=== PATIENT | female | born 1955 | race Caucasian/White ===

== ENCOUNTER 2019-02-04 07:21 | Day surgery (SDC) | payer OTHER ==
[2019-02-04 08:06] VITALS: BMI 23.4
[2019-02-04] MEDS ORDERED: PROPOFOL 20 ML ONE (09:24)
[2019-02-04] MEDS ORDERED: LIDOCAINE 1%/EPI 1:100000 (20 ML MULTI DOSE VIAL) ONE (09:28)
[2019-02-04] MEDS ORDERED: ONDANSETRON 4 MG/2 ML VIAL ONE (09:51)
[2019-02-04] MEDS ORDERED: ceFAZolin SODIUM 1 GM VIAL ONE (09:51)
[2019-02-04] MEDS ORDERED: DEXAMETHASONE SOD PHOSPHATE 4 MG/1 ML VIAL ONE (09:51)
[2019-02-04] MEDS ORDERED: ePHEDrine SULFATE 50 MG/1 ML AMPULE ONE (10:06)
[2019-02-04] MEDS ORDERED: ROCURONIUM BROMIDE 50 MG/5 ML SYRINGE ONE (10:25)
[2019-02-04] MEDS ORDERED: oxyCODONE HCL 5 MG TABLET PO PRN ×3 (12:39)
[2019-02-04] MEDS ORDERED: ACETAMINOPHEN 325 MG TABLET (FP) PO PRN (12:39)
[2019-02-04] MEDS ORDERED: ONDANSETRON 4 MG/2 ML VIAL IVPUSH PRN (12:39)
[2019-02-04] MEDS ORDERED: ONDANSETRON 4 MG/2 ML VIAL IVPB PRN (12:39)
--- NOTE | 2019-02-04 12:41 | OP ---
Operative Note - Note: Operative Date: 02/04/19 Pre-Operative Diagnosis: left breast cancer Operation: right breast reduction and left nipple reconstruction Post-Operative Diagnosis: Same as Pre-op Surgeon: Gigi Nieves Anesthesia: General Operative Report Dictated: Yes
[2019-02-04] MEDS ORDERED: LACTATED RINGERS SOLUTION 1,000 ML IV SCH ×2 (12:45)
--- NOTE | 2019-02-04 14:05 | OP ---
DATE OF OPERATION: 02/04/2019 PROCEDURE: Right-sided breast reduction, left-sided nipple-areolar reconstruction using skate flap. ATTENDING SURGEON: Gigi Joseph MD ASSISTANTS: None. ANESTHESIA: General endotracheal anesthesia. Patient also received 5 mL of 1% lidocaine with 1:100,000 epinephrine to the left nipple reconstruction site. The patient was marked in the holding area. The nipples were sited at 21 cm from the sternal notch bilaterally. The patient is awake and aware of all incisions and resulting scars. Risks, benefits, and alternatives are discussed, understood and agreed to proceed. The patient was brought to the operating room. One gram of Ancef was given preoperatively. Sequential compression stockings and GEORGES hose were applied. The patient is then placed in supine position, is comfortable, position is carefully checked by surgical and anesthesia teams. A pillow was placed below the knees and a lower body Anisha Hugger is applied. Patient is then given anesthesia. She is prepped and draped in standard surgical fashion. A timeout is called. Patient, procedure, side and sites are verified. On the right side, a 38-mm nipple-areolar cookie cutter is used. A 9-cm width inferior pedicle is marked under tension. The nipple areola is traced and the pedicle is de-epithelialized with the exception of the nipple-areolar complex. The skin flaps are then elevated with centimeter and a half thickness, both superiorly, medially, and laterally, down to the level of the chest wall. The excess breast tissue is then resected between the skin flaps and the pedicle. Total resected weight is 248 g. Hemostasis is meticulously achieved. The skin is then tailor tacked in position. Patient brought to a seated upright position, where symmetry of size and shape is deemed to be good. The wound is copiously irrigated. A size 10 flat DILEEP drain is brought out through the lateral extent of the incision, secured with a 2-0 silk drain suture. The inverted T point is closed with a half-buried mattress 2-0 nylon suture. The pedicle was pexied to the superomedial chest wall with a 2-0 Vicryl suture. Closure is then performed with a series of interrupted buried deep dermal 3-0 Monocryl suture followed by a running subcuticular 3-0 Monocryl suture in all the vertical and horizontal as well as nipple-areolar keyhole insets. The nipple was pink and viable at the end of the procedure. Attention is then directed toward the contralateral side. A skate flap is elevated with a superior pedicle. The skate flap is folded upon itself and inset with a series of interrupted 5-0 nylon suture. The donor sites are closed with a series of interrupted buried deep dermal 3-0 Monocryl suture followed by a running 5-0 nylon suture. The inset is completed with a 5-0 nylon suture. All the tissues appear pink and viable. Dressings were applied with Steri-Strips, 4 x 4 gauze, Hypafix tape to both sides. A loosely-fitting surgical bra is applied. Patient awoken from anesthesia, having tolerated the procedure well. Drain placed to bulb suction. GIGI JOSEPH M.D. [id number]
[2019-02-04 14:57] VITALS: PULSE 91
[2019-02-04 15:19] VITALS: BP 132/65; TEMP 97.9
--- NOTE | 2019-02-11 13:36 | PATH ---
Surgical Pathology Report Patient Name: AL PERDOMO [facility]. Rec. #: [id number] /Age/Gender: 1955 (Age: 63) / F Account: [id number] Location[facility] Taken: 02/04/2019 Received: 02/04/2019 Reported: 02/11/2019 Physicians: Gigi Nieves Specimen(s) Received RIGHT BREAST TISSUE Clinical History Breast cancer, right breast reduction Final Diagnosis BREAST TISSUE, RIGHT, REDUCTION: BENIGN PREDOMINANTLY FATTY BREAST TISSUE. SKIN WITH NO PATHOLOGIC FINDINGS. Electronically Signed Cecile Issa M.D. Gross Description Received in formalin, labeled "right breast tissue" is a 14.5 x 14 x 4 cm aggregate of unoriented portions of fibroadipose tissue, partially surfaced by light richey, unremarkable skin. Sectioning reveals predominantly adipose tissue. Hospital Nurse sections are submitted in two cassettes.
== END 2019-02-04 15:19 | disposition home or self-care (01) ==
LOC: FASU 07:21
PROVIDERS: ATTEND Plastic Surgery
PROC: 0HX5XZZ Transfer Chest Skin, External Approach (ICD-10-PCS; principal; 2019-02-04 10:07)
PROC: 0HBT0ZZ Excision of Right Breast, Open Approach (ICD-10-PCS; 2019-02-04 10:07)
DX: C50.912 Malignant neoplasm of unspecified site of left female breast (principal)
CPT/HCPCS: 88304-TC; 94760

== ENCOUNTER 2023-02-28 09:16 | Day surgery (SDC) | payer OTHER ==
[2023-02-27 17:27] VITALS: BMI 23.0
[2023-02-28] MEDS ORDERED: EPI-SHUGARCAINE (EPINEPHRINE 0.025% & LIDOCAINE-PF 0.75%) 4ML ONE (09:32)
[2023-02-28] MEDS ORDERED: NEO/POLYMYX B SULF/DEXAMETH OPHTHALMIC 5ML BOTTLE ONE (09:32)
[2023-02-28] MEDS ORDERED: BACITRACIN/POLYMYXIN OPH OINT 3.5 GM TUBE ONE (09:32)
[2023-02-28] MEDS ORDERED: POVIDONE-IODINE 5% OPHTHALMIC PREP 30 ML SOLUTION ONE (09:32)
[2023-02-28] MEDS ORDERED: TETRACAINE 0.5% OPHTH SOLN 2 ML BOTTLE ONE (09:32)
[2023-02-28] MEDS ORDERED: BETAXOLOL HCL 0.25% OPHTHALMIC 10 ML DROPSBTL ONE (09:32)
[2023-02-28] MEDS ORDERED: KETOROLAC TROMETHAMINE 0.5% EYE DROP 1 DROP DROPS ONE (09:47)
[2023-02-28] MEDS ORDERED: CYCLOPENTOLATE HCL 1% OPHTH SOLN 2 ML BOTTLE ONE (09:47)
[2023-02-28] MEDS ORDERED: PHENYLEPHRINE 2.5% OPTHALMIC DROP 2ML BOTTLE ONE (09:47)
[2023-02-28] MEDS ORDERED: TROPICAMIDE 1% OPHTH SOLN 15 ML BOTTLE ONE (09:47)
[2023-02-28] MEDS ORDERED: OFLOXACIN 0.3% OPHTHALMIC SOLUTION 5 ML BOTTLE ONE (09:47)
[2023-02-28 10:01] VITALS: RESP 16
[2023-02-28] MEDS: CYCLOPENTOLATE HCL 1% OPHTH SOLN 2 ML BOTTLE OS SCH ×3 (10:05→10:15)
[2023-02-28] MEDS: OFLOXACIN 0.3% OPHTHALMIC SOLUTION 5 ML BOTTLE OS SCH ×3 (10:05→10:15)
[2023-02-28] MEDS: PHENYLEPHRINE 2.5% OPHTH SOLN 15 ML BOTTLE OS SCH ×3 (10:05→10:15)
[2023-02-28] MEDS: KETOROLAC TROMETHAMINE 0.5% EYE DROP 1 DROP DROPS OS SCH ×3 (10:05→10:15)
[2023-02-28] MEDS: TROPICAMIDE 1% OPHTH SOLN 15 ML BOTTLE OS SCH ×3 (10:05→10:15)
[2023-02-28] MEDS ORDERED: ACETAMINOPHEN 325 MG TABLET (FP) PO PRN (11:24)
[2023-02-28] MEDS ORDERED: MIDAZOLAM HCL 2 MG/2 ML SINGLE DOSE VIAL ONE (11:41)
[2023-02-28 12:40] VITALS: BP 141/62; PULSE 67; TEMP 97.6
== END 2023-02-28 13:05 | disposition home or self-care (01) ==
LOC: FASU 09:16
PROVIDERS: ATTEND Ophthalmology
PROC: 08RK3JZ Replacement of Left Lens with Synthetic Substitute, Percutaneous Approach (ICD-10-PCS; principal; 2023-02-28 11:54)
DX: H25.89 Other age-related cataract (principal)
CPT/HCPCS: 66984; V2632

== ENCOUNTER 2023-03-14 08:10 | Day surgery (SDC) | payer OTHER ==
[2023-03-10 10:45] VITALS: BMI 23.0
[2023-03-14] MEDS ORDERED: OFLOXACIN 0.3% OPHTHALMIC SOLUTION 5 ML BOTTLE ONE (08:25)
[2023-03-14] MEDS ORDERED: TROPICAMIDE 1% OPHTH SOLN 15 ML BOTTLE ONE (08:25)
[2023-03-14] MEDS ORDERED: PHENYLEPHRINE 2.5% OPTHALMIC DROP 2ML BOTTLE ONE (08:25)
[2023-03-14] MEDS ORDERED: CYCLOPENTOLATE HCL 1% OPHTH SOLN 2 ML BOTTLE ONE (08:25)
[2023-03-14] MEDS ORDERED: KETOROLAC TROMETHAMINE 0.5% EYE DROP 1 DROP DROPS ONE (08:25)
[2023-03-14] MEDS: OFLOXACIN 0.3% OPHTHALMIC SOLUTION 5 ML BOTTLE OD SCH ×3 (08:45→08:55)
[2023-03-14] MEDS: TROPICAMIDE 1% OPHTH SOLN 15 ML BOTTLE OD SCH ×3 (08:45→08:55)
[2023-03-14] MEDS: KETOROLAC TROMETHAMINE 0.5% EYE DROP 1 DROP DROPS OD SCH ×3 (08:45→08:55)
[2023-03-14] MEDS: PHENYLEPHRINE 2.5% OPHTH SOLN 15 ML BOTTLE OD SCH ×3 (08:45→08:55)
[2023-03-14] MEDS: CYCLOPENTOLATE HCL 1% OPHTH SOLN 2 ML BOTTLE OD SCH ×3 (08:45→08:55)
[2023-03-14 08:55] VITALS: RESP 16
[2023-03-14] MEDS ORDERED: NEO/POLYMYX B SULF/DEXAMETH OPHTHALMIC 5ML BOTTLE ONE (09:36)
[2023-03-14] MEDS ORDERED: TETRACAINE 0.5% OPHTH SOLN 2 ML BOTTLE ONE (09:36)
[2023-03-14] MEDS ORDERED: POVIDONE-IODINE 5% OPHTHALMIC PREP 30 ML SOLUTION ONE (09:36)
[2023-03-14] MEDS ORDERED: EPI-SHUGARCAINE (EPINEPHRINE 0.025% & LIDOCAINE-PF 0.75%) 4ML ONE (09:36)
[2023-03-14] MEDS ORDERED: BETAXOLOL HCL 0.25% OPHTHALMIC 10 ML DROPSBTL ONE (09:36)
[2023-03-14] MEDS ORDERED: BACITRACIN/POLYMYXIN OPH OINT 3.5 GM TUBE ONE (09:36)
[2023-03-14] MEDS ORDERED: MIDAZOLAM HCL 2 MG/2 ML SINGLE DOSE VIAL ONE (10:56)
[2023-03-14] MEDS ORDERED: ACETAMINOPHEN 325 MG TABLET (FP) PO PRN (11:37)
[2023-03-14] MEDS ORDERED: ACETAMINOPHEN 325 MG TABLET (FP) ONE (12:10)
[2023-03-14 12:27] VITALS: TEMP 98.1
[2023-03-14 12:31] VITALS: BP 133/74; PULSE 76
== END 2023-03-14 12:20 | disposition home or self-care (01) ==
LOC: FASU 08:10
PROVIDERS: ATTEND Ophthalmology
PROC: 08RJ3JZ Replacement of Right Lens with Synthetic Substitute, Percutaneous Approach (ICD-10-PCS; principal; 2023-03-14 11:10)
DX: H25.89 Other age-related cataract (principal)
CPT/HCPCS: 66984; V2632